=== PATIENT | female | born 1965 ===

== ENCOUNTER → 2021-09-19 13:38 | Outpatient (CLI) | payer MEDICAID, SELFPAY ==
--- NOTE | 2021-09-19 | DI.RAD.S_ITS ---
PROCEDURE: XR FOOT LT MIN 3V INDICATIONS: LEFT FOOT PAIN TECHNIQUE: 3 views of the foot were acquired. COMPARISON: None. FINDINGS: Bones: No fractures or dislocations. No suspicious bony lesions. Moderate calcaneal spur noted Soft tissues: No tibiotalar joint effusion. Achilles tendon appears normal. IMPRESSION: Calcaneal spur. No fracture or lytic lesion Approved by: Butch Fernando M.D. on 09/19/2021 at 16:59
== END ==
PROVIDERS: PCP Family Medicine; Referring Provider Family Medicine; Visit Provider Family Medicine
DX: M79.672 Pain in left foot (principal); M77.32 Calcaneal spur, left foot
CPT/HCPCS: 73630

== ENCOUNTER → 2023-05-08 11:02 | Outpatient (CLI) | payer OTHER, MEDICAID, SELFPAY ==
--- NOTE | 2023-05-08 11:08 | DI.RAD.S_ITS ---
PROCEDURE: XR WRIST LT MIN 3V INDICATIONS: LEFT WRIST PAIN TECHNIQUE: 4 views of the wrist were acquired. COMPARISON: None. FINDINGS: Bones: No acute fractures or dislocations. Chronic appearing deformity involving 5th metacarpal shaft. Osteoarthritic changes along radial aspect of left wrist are seen. No suspicious bony lesions. Soft tissues: No suspicious soft tissue calcifications. IMPRESSION: Mild wrist joint osteoarthritis. No acute fracture or dislocation. Old fracture involving 5th metacarpal shaft with chronic appearing deformity. Dictated by: Sourav Kern M.D. on 05/08/2023 at 13:21 Approved by: Sourav Kern M.D. on 05/08/2023 at 13:22
== END ==
LOC: RAD 11:06
PROVIDERS: PCP Family Medicine; Referring Provider Registered Nurse; Visit Provider Registered Nurse
DX: M25.532 Pain in left wrist (principal); M19.032 Primary osteoarthritis, left wrist; S62.327S Displaced fracture of shaft of fifth metacarpal bone, left hand, sequela
CPT/HCPCS: 73110